=== PATIENT | female | born 1945 | race Caucasian/White ===

== ENCOUNTER → 2019-10-31 12:16 | Outpatient (CLI) | payer MEDICARE, OTHER, SELFPAY ==
--- NOTE | 2019-10-31 | DI.MRI.S_ITS ---
PROCEDURE: MR HAND RT WO CON INDICATIONS: pain in 4th digit TECHNIQUE: Noncontrast coronal T1 spin echo and T2 fast spin echo with fat saturation, axial proton density fast spin echo and T2 fast spin echo with fat saturation, sagittal T1 spin echo and STIR through the hand and fingers. COMPARISON: None. FINDINGS: Image quality: Excellent. Bones: Osteoarthritic changes are noted throughout right hand and wrist. There is no fracture or dislocation. There is marrow edema involving fourth distal phalangeal base and fourth middle phalangeal head with suggestion of subtle bony erosive changes involving radial cortex of fourth proximal phalangeal head. There is also suggestion of subtle erosion along radial aspect of fourth distal phalangeal base. Expansile lesion involving fourth middle phalangeal head cannot be entirely excluded. No other area of abnormal marrow signal. Numerous subcortical cyst formation throughout carpal bones and metacarpal bases, erosive changes secondary to inflammatory arthropathy cannot be excluded. Interphalangeal joint(s): Attenuated appearance involving radial collateral ligaments of fourth distal interphalangeal joint is seen, concerning for sprain/partial thickness tear. Rest of the accessory and proper collateral ligaments appear intact. The volar plate demonstrates normal morphology. The extensor central slips appear intact on sagittal images. Metacarpophalangeal joint(s): The accessory and proper collateral ligaments appear intact, as well as the volar plate and adjacent deep transverse metacarpal ligaments. The sagittal bands of the extensor schneider appear normal. Extensor apparatus: The central slips insert normally on the middle phalangeal base. The conjoint and terminal tendons insert normally on the distal phalangeal bases. More proximal portions of the extensor tendons also appear normal. Flexor apparatus: The flexor digitorum superficialis and profundus tendons both appear intact. All annular and cruciform pulleys appear intact, without adjacent soft tissue edema. Soft tissues: Visualized muscles demonstrate normal bulk and internal signal. No intramuscular masses identified. No defined fluid signal is seen involving the soft tissue along radial aspect of fourth distal interphalangeal joint and measures approximately 4 x 6 x 4 mm in size. No other area of abnormal soft tissue signal is seen. IMPRESSION: 1. Asymmetric soft tissue prominence involving radial aspect of fourth PIP joint measures 6 x 4 x 4 mm in size. There is marrow edema and erosive changes involving the adjacent fourth middle phalangeal head and adjacent fourth distal phalangeal base. Intraosseous lesion within the medullary space of fourth middle phalangeal head cannot be excluded. Finding could represent infectious process such as septic arthritis. A neoplastic process cannot be excluded if there is no sign of infection in this area. 2. Attenuated appearance of the radial collateral ligaments as fourth PIP joint suggestive of at least partial thickness tear. Rest of the tendons and ligaments of right hand are grossly intact. 3. Osteoarthritic changes throughout right hand and wrist joints. Erosive changes secondary to inflammatory arthropathy in the carpal bones and metacarpal bases cannot be excluded. Dictated by: Xander Grant M.D. on 11/01/2019 at 11:43 Approved by: Xander Grant M.D. on 11/01/2019 at 11:57
== END ==
PROVIDERS: Referring Provider Physician Assistant Medical; Visit Provider Physician Assistant Medical
DX: M79.644 Pain in right finger(s) (principal)
CPT/HCPCS: 73218